=== PATIENT | female | born 1935 | race Caucasian/White ===

== ENCOUNTER → 2016-12-19 | Outpatient (CLI) | payer MEDICARE, MEDICAID ==
[~2016-12-19] VITALS: Ht 149.9 cm; Wt 81.6 kg
[~2016-12-19] MED LIST: AMYL1CAP62 PO; AUD NEB; CEFX1I IM; FENO48TA15 PO; GABA-531 PO; HYDR-309 PO; INSLAN SQ; LIDOCAINE HCL 2% 5 ML JELLY TP ONE; LOSA50TA37 PO; METF-514 PO; METO-325 PO; OXYB5 PO; PANT40TA25 PO; SIMV-259 PO; TRIAMCINOLONE 0.1% 15 GM CREAM TP ONE
[2016-12-19 10:32] VITALS: BP 142/77
== END | disposition home or self-care (01) ==
LOC: HBOWC 09:21
PROVIDERS: ATTEND Emergency Medicine
DX: E11.622 Type 2 diabetes mellitus with other skin ulcer (principal); L98.491 Non-pressure chronic ulcer of skin of other sites limited to breakdown of skin; J44.9 Chronic obstructive pulmonary disease, unspecified; G47.30 Sleep apnea, unspecified; E78.5 Hyperlipidemia, unspecified; H91.90 Unspecified hearing loss, unspecified ear; I10 Essential (primary) hypertension; Z85.038 Personal history of other malignant neoplasm of large intestine
CPT/HCPCS: 87070; 87205; 97597; G0463

== ENCOUNTER → 2016-12-26 | Outpatient (CLI) | payer MEDICARE, MEDICAID ==
[~2016-12-26] MED LIST changes: +IOVERSOL 350 MG/ML 150 ML VIAL ONE; -LIDOCAINE HCL 2% 5 ML JELLY TP ONE; +SODIUM CHLORIDE 0.9% 100 ML ONE; -TRIAMCINOLONE 0.1% 15 GM CREAM TP ONE
== END | disposition home or self-care (01) ==
LOC: RADMN 08:26
PROVIDERS: ATTEND Internal Medicine Geriatric Medicine
DX: L02.211 Cutaneous abscess of abdominal wall (principal); N28.1 Cyst of kidney, acquired; I70.0 Atherosclerosis of aorta
CPT/HCPCS: 74177; J7050; Q9967